=== PATIENT | male | born 1990 | race African-American/Black ===

== ENCOUNTER 2017-07-19 10:25 | Emergency (ER) | payer MEDICAID ==
[~2017-07-19] VITALS: Ht 172.7 cm; Wt 90.0 kg
[2017-07-19 12:14] LABS: HEMATOCRIT 47.4 % (39.2-51.8); HEMOGLOBIN 15.3 g/dL (13.7-18.0)
[2017-07-19 12:18] LABS: ANISOCYTOSIS 1+; MICROCYTOSIS 1+
[2017-07-19 12:19] LABS: HYPOCHROMIA 1+; LARGE PLATELETS 1+
[2017-07-19 12:26] LABS: BLOOD UREA NITROGEN 10 mg/dL (7-18)
[2017-07-19 12:35] LABS: IS PT STATUS REG ER OR PRE ER? YES
[2017-07-19 13:31] VITALS: BP 128/71
== END 2017-07-19 13:31 | disposition home or self-care (01) ==
LOC: ED 11:25
DX: R09.1 Pleurisy (principal); I25.2 Old myocardial infarction
CPT/HCPCS: 36415; 71010; 80048; 82040; 84484; 85025; 85651; 93005; 99285